=== PATIENT | female | born 1960 | race African-American/Black ===

== ENCOUNTER 2021-09-20 14:10 | Emergency (ER) | payer BC ==
[~2021-09-20] VITALS: Ht 170.2 cm; Wt 77.1 kg
[2021-09-20] MEDS ORDERED: EC-NAPROSYN375 MG PO (17:34)
== END 2021-09-20 17:46 | disposition home or self-care (01) ==
LOC: ER 14:10
DX: M25.572 Pain in left ankle and joints of left foot (principal)